=== PATIENT | male | born 1990 | race Caucasian/White ===

== ENCOUNTER → 2021-08-22 | Outpatient (CLI) | payer MEDICARE, OTHER ==
[~2021-08-22] MED LIST: AUGMENTIN 875-1 EACH PO; COLACE100 MG PO; LORTAB 7.5-3251 EACH PO
== END ==
LOC: KOH-I 15:00
DX: M25.552 Pain in left hip (principal); M16.12 Unilateral primary osteoarthritis, left hip; M25.752 Osteophyte, left hip; M25.852 Other specified joint disorders, left hip; Z98.890 Other specified postprocedural states
CPT/HCPCS: 73200